=== PATIENT | female | born 1970 | race Hispanic/Latino ===

== ENCOUNTER 2024-07-12 20:37 | Emergency (ER) | payer MEDICAID ==
[~2024-07-12] VITALS: Ht 147.3 cm; Wt 82.1 kg
[2024-07-12] MEDS: ketOROlac 30MG VIAL (30MG/ML) IM ONE (22:38)
[2024-07-12 23:05] VITALS: TEMP 97.8
[2024-07-12] MEDS ORDERED: KETO10TA2 PO (23:37)
--- NOTE | 2024-07-12 23:37 | ERN ---
General Chief Complaint: Arm Swelling/Redness Stated Complaint: C/O PAIN TO RT HAND AND ARM X 1 MONTH Time Seen by MD: 20:40 Time Seen by Midlevel: 20:40 Source: patient History of Present Illness Initial Comments Patient is a 53-year-old female presenting with right hand pain that has been ongoing for over a month. She has not seen her primary care doctor or anyone else for this issue. She states the pain is over the base of the right thumb. She denies any direct injury to the area. She does report having a previous surgery to that area after she sustained a fracture. Denies any new injury. Allergies: Coded Allergies: No Known Allergies (Unverified Allergy, Unknown, 07/12/24) Home Meds Active Scripts Ketorolac Tromethamine (Ketorolac Tromethamine) 10 Mg Tablet, 10 MG PO BID for 5 Days, #10 TAB Prov:SCOTT ROGER 07/12/24 Past Medical History Past Medical History: Diabetes-Type II, High Cholesterol, Hypertension, Other Medical History Other: HX OF KIDNEY STONES Past Surgical History: Appendectomy, Hysterectomy, Cholecystectomy, ROS Dictation CONSTITUTIONAL: Negative except for HPI HEAD/FACE: Negative except for HPI EENT: Negative except for HPI RESPIRATORY: Negative except for HPI GASTROINTESTINAL/ABDOMINAL: Negative except for HPI GENITOURINARY: Negative except for HPI MUSCULOSKELETAL: Negative except for HPI INTEGUMENTARY: Negative except for HPI NEUROLOGICAL/PSYCH: Negative except for HPI HEMATOLOGIC/LYMPHATIC: Negative except for HPI All Systems Negative, Except as noted above. 13 point review of systems assessed and all negative except for above. Physical Exam Physical Exam Dictation PHYSICAL EXAM: GENERAL: alert,, awake oriented x 3 HEENT: EOMI, Sclera non icteric, moist mucosa NECK: Supple, no JVD, trachea midline LUNGS: Clear breath sounds bilaterally. No wheezes HEART: Regular rate and rhythm. Normal S1 and S2, without murmurs ABD: Abdomen soft, nontender. Bowel sounds present EXT: There is snuffbox tenderness to the right hand, full range of motion of all five digits, good radial pulse, sensation intact NEURO: Alert and oriented to person, follows commands MDM MDM: Patient is a 53-year-old female presenting with right hand pain that has been ongoing for over a month. She has not seen her primary care doctor or anyone else for this issue. She states the pain is over the base of the right thumb. She denies any direct injury to the area. She does report having a prev ious surgery to that area after she sustained a fracture. Denies any new injury. On physical examination patient has snuffbox tenderness to the right hand. An x-ray of the right hand reveals no acute fracture however given her clinical presentation she was placed on a wrist and thumb immobilizer and will be sent to follow up with orthopedic surgeon outpatient. Patient was agreeable with this plan and all of her questions were answered. Return precautions discussed Differential diagnosis: Fracture, dislocation, sprain There are no social concerns with this patient. Prescription drug management Prescriptions will include: Medical management and examination interpretation discussions were had by me with other qualified healthcare professionals as indicated for the patient's care. ED Course Orders Procedure Category Date Status Time Ketorolac PHA 07/12/24 Complete Tromethamine 30mg/Ml 22:30 Hand 3+Vws Rt RAD 07/12/24 Taken 22:19 Wrist Comp 3+Vws Rt RAD 07/12/24 Taken 22:19 Thumb & Wrist [email or web address] 07/12/24 Complete Immobilizer 23:30 Current Medications Medications (Trade) Dose Ordered Sig/Regulo Route PRN Reason Start Time Stop Time Status Last Admin Dose Admin Ketorolac Tromethamine (toRADol) 30 mg ONCE ONCE IM 07/12/24 22:30 07/12/24 22:31 DC 07/12/24 22:38 Vital Signs Date Time Temp Pulse Resp B/P (MAP) Pulse Ox O2 Delivery O2 Flow Rate FiO2 07/13/24 00:10 75 18 146/77 96 Room Air* 0 21 07/12/24 23:05 97.9 75 20 136/81 97 Room Air* 0 21 07/12/24 20:40 98.2 84 20 123/72 98 Room Air DX & DISP Disposition: Discharge Departure Impression: Primary Impression: Right hand pain Condition: Stable Scripts Ketorolac Tromethamine (Ketorolac Tromethamine) 10 Mg Tablet 10 MG PO BID for 5 Days, #10 TAB Prov: SCOTT ROGER 07/12/24 Additional Instructions: Your right hand x-ray does not show any obvious fracture. You were placed on a thumb and wrist immobilizer. You will need to follow up with orthopedic surgery if your symptoms persist. If you develop any new or worsening symptoms please report to the ER for further evaluation Referrals: THEA CROCKETT (PCP) MONSTER OTT MD Time of Disposition: 23:35 I have reviewed the case, and I agree with, Diagnosis and Plan SCOTT ROGER Jul 12, 2024 23:37
[2024-07-13 00:10] VITALS: BP 146/77; PULSE 75; RESP 18; O2SAT 96
--- NOTE | 2024-07-13 08:45 | HMCIMG ---
WRIST COMP 3+VWS RT REASON: pain/swellling TECHNIQUE: 3 views were obtained. 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 There is mild osteoarthritis in the PIP joints. There is osteoarthritis at the base of the thumb. There are no fractures. There is hardware in the distal radius from remote previous fracture fixation. There is an ossicle adjacent to the ulnar consistent with a nonhealed ulnar styloid fracture. IMPRESSION: No acute findings.
--- NOTE | 2024-07-13 08:50 | HMCIMG ---
HAND 3+VWS RT REASON: pain/swellling TECHNIQUE: 3 views were obtained. 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 There is osteoarthritis at the base of the thumb. There are no fractures. Joint spaces are otherwise preserved. Soft tissues appear unremarkable. IMPRESSION: No acute findings.
== END 2024-07-13 00:20 | disposition home or self-care (01) ==
LOC: EDH 20:37
DX: M79.641 Pain in right hand (principal); E11.9 Type 2 diabetes mellitus without complications; E78.00 Pure hypercholesterolemia, unspecified; I10 Essential (primary) hypertension; Z79.899 Other long term (current) drug therapy; Z90.49 Acquired absence of other specified parts of digestive tract; Z90.710 Acquired absence of both cervix and uterus; Z98.890 Other specified postprocedural states; X58.XXXA Exposure to other specified factors, initial encounter; Y93.89 Activity, other specified; Y92.89 Other specified places as the place of occurrence of the external cause; Y99.8 Other external cause status
CPT/HCPCS: 99284; 73130; 73110; 29125; 96372; J1885